=== PATIENT | female | born 1935 | race Caucasian/White ===

== ENCOUNTER 2017-08-25 13:01 | Inpatient (IN) | payer OTHER ==
[~2017-08-25] VITALS: Ht 172.7 cm; Wt 95.8 kg
[2017-08-25] MEDS ORDERED: cefTRIAXone 1GM/10ml IVPUSH 10 ML IV ONE (13:45)
[2017-08-25 14:00] LABS: Basophils # (auto) 0.1 uL; Basophils % (auto) 0.6 % (0.0-2.0); Eosinophils # (auto) 0.1 uL; Hematocrit 44.7 % (36.0-46.0); Hemoglobin 14.3 g/dL (12.2-16.2); Lymphocytes # (auto) 2.5 uL; Lymphocytes % (auto) 26.4 % (10.0-50.0); Mean Corpuscular Volume 90.7 fL (80.0-100.0); Monocytes # (auto) 0.7 uL; Monocytes % (auto) 6.9 % (0.0-12.0); Neutrophils # (auto) 6.2 uL; Neutrophils % (auto) 65.1 % (37.0-80.0); Nucleated Red Blood Cells % 0.1 %; Platelet Count (auto) 242 10^3/uL (140-450); Red Blood Cells 4.92 10^6/uL (4.0-5.20); Red Cell Distribution Width 16.7 % (11.8-14.3); White Blood Cell 9.5 10^3/uL (4.4-10.8)
[2017-08-25 14:20] LABS: Albumin 3.1 g/dL (3.4-5.0); BUN/Creatinine Ratio 13.8; Bilirubin, Total 0.4 mg/dL (0.2-1.0); Calcium 8.4 mg/dL (8.5-10.1); Magnesium 2.2 mg/dL (1.6-2.6); Potassium 3.2 mmol/L (3.5-5.1); Total Protein 7.1 g/dL (6.4-8.2)
[2017-08-25 14:49] LABS: Lactic Acid w/Reflex 2.6 mmol/L (0.4-2.0)
[2017-08-25] MEDS ORDERED: VANCOMYCIN 1GM/250ML 250 ML IV ONE (15:45)
[2017-08-25 16:11] LABS: Urine Amorphous Crystal FEW /hpf (None Seen); Urine Bacteria MANY /hpf (None Seen); Urine Blood TRACE /uL (Negative); Urine Mucus FEW (None Seen); Urine Specific Gravity 1.017 (1.001-1.035); Urine WBC 66 /hpf (0 - 5); Urine WBC Clumps PRESENT /hpf (None Seen)
[2017-08-25] MEDS ORDERED: ONDANSETRON HCL 4 MG/2 ML VIAL IV PRN (16:15)
[2017-08-25] MEDS ORDERED: NITROGLYCERIN 0.4 MG SL TAB SL PRN (16:15)
[2017-08-25] MEDS ORDERED: DEXTROSE (50%) 50ML SYRG IV PRN (16:15)
[2017-08-25] MEDS ORDERED: MORPHINE SULFATE 4 MG/ML SYR/VIAL IV PRN ×2 (16:15)
[2017-08-25] MEDS ORDERED: POTASSIUM CHLORIDE 20 MEQ, LIDOCAINE 1% (LOCAL ANESTH.) 2 ML in SODIUM CHL 0.9% 100 ML IV ONE (16:15)
[2017-08-25] MEDS ORDERED: VANCOMYCIN PER PHARMACY 0 MG IV SCH (16:15)
[2017-08-25] MEDS ORDERED: ASPirin 300 MG RECTAL SUPP PR ONE (16:45)
[2017-08-25] MEDS: SODIUM CHLORIDE 0.9% 1,000 ML IV SCH (16:54)
[2017-08-25] MEDS: ENOXAPARIN SOD 40 MG/0.4 ML SYRINGE SC SCH (16:54)
[2017-08-25] MEDS: InsuLIN REG 1unit/0.01ml Soln (100units/ml) SC SCH (18:00)
[2017-08-25] MEDS: ACCU-CHEK COMFORT CURVE STRIP VI SCH (18:06)
[2017-08-25 20:15] LABS: Lactic Acid w/Reflex 2.1 mmol/L (0.4-2.0)
[2017-08-25 21:06] VITALS: BP 104/81
[2017-08-25] MEDS ORDERED: FUROSEMIDE 20 MG/2 ML VIAL IV ONE (21:15)
[2017-08-25 22:28] VITALS: BP 99/49
[2017-08-26] VITALS (9 sets, daily range): BP systolic 90–134; BP diastolic 40–86
[2017-08-26] MEDS ORDERED: PIPERACILLIN-TAZOB 3.375GM 100 ML IV SCH
[2017-08-26] MEDS ORDERED: GLIP-115 PO (01:13)
[2017-08-26] MEDS ORDERED: METF-370 PO (01:13)
[2017-08-26] MEDS ORDERED: LOSA25TA9 PO (01:13)
[2017-08-26] MEDS ORDERED: CLOP75TA28 PO (01:13)
[2017-08-26] MEDS ORDERED: ATOR80TA PO (01:13)
[2017-08-26 05:37] LABS: Basophils # (auto) 0.1 uL; Basophils % (auto) 0.6 % (0.0-2.0); Eosinophils # (auto) 0.1 uL; Eosinophils % (auto) 0.7 % (0.0-7.0); Hematocrit 35.8 % (36.0-46.0); Hemoglobin 11.8 g/dL (12.2-16.2); Lymphocytes % (auto) 23.6 % (10.0-50.0); Mean Corpuscular Hemoglobin 29.7 pg (28.0-32.0); Mean Corpuscular Hgb Conc. 32.9 g/dL (32.0-36.0); Mean Corpuscular Volume 90.2 fL (80.0-100.0); Monocytes # (auto) 0.8 uL; Monocytes % (auto) 9.1 % (0.0-12.0); Neutrophils # (auto) 5.7 uL; Nucleated Red Blood Cells % 0.1 %; Platelet Count (auto) 200 10^3/uL (140-450); Red Blood Cells 3.97 10^6/uL (4.0-5.20); Red Cell Distribution Width 16.2 % (11.8-14.3); White Blood Cell 8.6 10^3/uL (4.4-10.8)
[2017-08-26] MEDS: InsuLIN REG 1unit/0.01ml Soln (100units/ml) SC SCH ×4 (06:00→17:59)
[2017-08-26] MEDS: ACCU-CHEK COMFORT CURVE STRIP VI SCH ×4 (06:00→17:59)
[2017-08-26 06:13] LABS: Albumin 2.7 g/dL (3.4-5.0); BUN/Creatinine Ratio 18.8; Calcium 8.3 mg/dL (8.5-10.1)
[2017-08-26 06:15] LABS: Bilirubin, Total 0.5 mg/dL (0.2-1.0); Total Protein 5.9 g/dL (6.4-8.2)
[2017-08-26] MEDS: SODIUM CHLORIDE 0.9% 1,000 ML IV SCH (08:54)
[2017-08-26] MEDS: PIPERACILLIN-TAZOB 3.375GM 100 ML IV SCH ×3 (09:00→20:32)
[2017-08-26] MEDS ORDERED: cefTRIAXone 1GM/10ml IVPUSH 10 ML IV SCH (09:00)
[2017-08-26] MEDS: ENOXAPARIN SOD 40 MG/0.4 ML SYRINGE SC SCH (10:01)
[2017-08-26] MEDS: VANCOMYCIN 1,250 MG in D5W 5% 250 ML IV SCH (10:02)
[2017-08-26] MEDS ORDERED: PANTOPRAZOLE 40 MG/10 ML VIAL IV ONE (13:45)
[2017-08-26] MEDS: CLOPIDOGREL BISULFATE 75 MG TAB PO SCH (14:58)
[2017-08-26] MEDS ORDERED: FAMOTIDINE 20 MG TAB PO ONE (15:00)
[2017-08-26] MEDS ORDERED: POTASSIUM CHL 20 Meq TABLET PO ONE ×2 (15:02→15:40)
[2017-08-26] MEDS: POTASSIUM CHL 20MEQ/100ML 100 ML IV SCH ×2 (15:04→15:49)
[2017-08-26] MEDS ORDERED: IOHEXOL 350 MG/ML 100ML IJ ONE (15:57)
[2017-08-27] VITALS: BP 108/66
[2017-08-27] MEDS: ACCU-CHEK COMFORT CURVE STRIP VI SCH ×5 (00:13→23:44)
[2017-08-27] MEDS: SODIUM CHLORIDE 0.9% 1,000 ML IV SCH ×2 (01:34→18:14)
[2017-08-27] MEDS: PIPERACILLIN-TAZOB 3.375GM 100 ML IV SCH ×2 (02:59→09:31)
[2017-08-27 04:00] VITALS: BP 116/70
[2017-08-27] MEDS: VANCOMYCIN 1,250 MG in D5W 5% 250 ML IV SCH ×2 (04:44→22:24)
[2017-08-27 05:58] LABS: Basophils # (auto) 0 uL; Basophils % (auto) 0.7 % (0.0-2.0); Eosinophils # (auto) 0.1 uL; Hematocrit 40.3 % (36.0-46.0); Hemoglobin 13.3 g/dL (12.2-16.2); Lymphocytes # (auto) 1.8 uL; Lymphocytes % (auto) 25.9 % (10.0-50.0); Mean Corpuscular Hemoglobin 29.8 pg (28.0-32.0); Mean Corpuscular Hgb Conc. 32.8 g/dL (32.0-36.0); Mean Corpuscular Volume 90.8 fL (80.0-100.0); Monocytes # (auto) 0.7 uL; Monocytes % (auto) 10.1 % (0.0-12.0); Neutrophils # (auto) 4.4 uL; Neutrophils % (auto) 62.3 % (37.0-80.0); Nucleated Red Blood Cells % 0.1 %; Platelet Count (auto) 201 10^3/uL (140-450); Red Blood Cells 4.44 10^6/uL (4.0-5.20); Red Cell Distribution Width 16.3 % (11.8-14.3); White Blood Cell 7.1 10^3/uL (4.4-10.8)
[2017-08-27] MEDS: InsuLIN REG 1unit/0.01ml Soln (100units/ml) SC SCH ×5 (06:15→23:45)
[2017-08-27 06:17] LABS: Potassium 3.3 mmol/L (3.5-5.1)
[2017-08-27 06:26] LABS: Albumin 2.9 g/dL (3.4-5.0); BUN/Creatinine Ratio 15.1; Calcium 8.5 mg/dL (8.5-10.1)
[2017-08-27 06:28] LABS: Bilirubin, Total 0.6 mg/dL (0.2-1.0); Total Protein 6.6 g/dL (6.4-8.2)
[2017-08-27 08:00] VITALS: BP 118/76
[2017-08-27] MEDS: ENOXAPARIN SOD 40 MG/0.4 ML SYRINGE SC SCH (10:00)
[2017-08-27] MEDS: FAMOTIDINE 20 MG TAB PO SCH (10:00)
[2017-08-27] MEDS: CLOPIDOGREL BISULFATE 75 MG TAB PO SCH (10:00)
[2017-08-27] MEDS ORDERED: PANTOPRAZOLE 40 MG/10 ML VIAL IV SCH (10:00)
[2017-08-27] MEDS ORDERED: IOHEXOL 350 MG/ML 100ML IJ ONE (11:01)
[2017-08-27] MEDS ORDERED: LIDOCAINE HCL 2 %PF INJ 10ML AMP IJ ONE (11:01)
[2017-08-27] MEDS ORDERED: AZITHROMYCIN 500MG/ 250ML 250 ML IV ONE (11:30)
[2017-08-27 11:50] VITALS: BP 114/62
[2017-08-27] MEDS ORDERED: fentaNYL CITRATE 100 MCG/2 ML VL ONE (13:53)
[2017-08-27] MEDS ORDERED: ANGIOMAX 250 MG VIAL IV ONE (13:53)
[2017-08-27] MEDS ORDERED: SODIUM CHL 0.9% 0 ML ONE (13:53)
[2017-08-27] MEDS ORDERED: MIDAZOLAM HCL 1MG/1ML-2 ML VIAL ONE (13:53)
[2017-08-27] MEDS ORDERED: NALOXONE HCL 0.4 MG/ML VIAL ONE (14:20)
[2017-08-27] MEDS ORDERED: FLUMAZENIL 0.1 MG/ML INJ 10ML MDV IV ONE (14:20)
[2017-08-27] MEDS ORDERED: DOBUTamine 1000MCG/ML 250 ML IV ONE (14:32)
[2017-08-27] MEDS: DOBUTamine 1000MCG/ML 250 ML IV SCH (14:45)
[2017-08-27 15:35] VITALS: BP 126/67
[2017-08-27] MEDS: AZITHROMYCIN 500MG/ 250ML 200 ML IV SCH (16:30)
[2017-08-27] MEDS: cefTRIAXone 1GM/10ml IVPUSH 10 ML IV SCH (17:54)
[2017-08-27 19:46] VITALS: BP 108/44
[2017-08-27] MEDS: ATORVASTATIN 20 MG TAB PO SCH (22:23)
[2017-08-28 05:11] LABS: Basophils # (auto) 0 uL; Basophils % (auto) 0.4 % (0.0-2.0); Eosinophils # (auto) 0.1 uL; Eosinophils % (auto) 1.4 % (0.0-7.0); Hematocrit 38.7 % (36.0-46.0); Hemoglobin 12.4 g/dL (12.2-16.2); Lymphocytes # (auto) 2.1 uL; Lymphocytes % (auto) 29.6 % (10.0-50.0); Mean Corpuscular Volume 90.7 fL (80.0-100.0); Monocytes # (auto) 0.7 uL; Monocytes % (auto) 10.4 % (0.0-12.0); Neutrophils # (auto) 4.1 uL; Neutrophils % (auto) 58.2 % (37.0-80.0); Nucleated Red Blood Cells % 0.1 %; Platelet Count (auto) 166 10^3/uL (140-450); Red Blood Cells 4.26 10^6/uL (4.0-5.20); Red Cell Distribution Width 15.8 % (11.8-14.3)
[2017-08-28 05:25] LABS: Albumin 2.8 g/dL (3.4-5.0); BUN/Creatinine Ratio 13.6; Calcium 8.4 mg/dL (8.5-10.1)
[2017-08-28 05:26] LABS: Bilirubin, Total 0.5 mg/dL (0.2-1.0); Total Protein 6.1 g/dL (6.4-8.2)
[2017-08-28] MEDS: InsuLIN REG 1unit/0.01ml Soln (100units/ml) SC SCH ×3 (06:00→19:30)
[2017-08-28] MEDS: ACCU-CHEK COMFORT CURVE STRIP VI SCH ×3 (06:00→19:30)
[2017-08-28 08:00] VITALS: BP 128/77
[2017-08-28] MEDS: DOBUTamine 1000MCG/ML 250 ML IV SCH ×2 (08:11→08:27)
[2017-08-28 08:20] LABS: INR 1.02 (0.9-1.15); Prothrombin Time 11.1 sec (9.37-12.3)
[2017-08-28] MEDS: ENOXAPARIN SOD 40 MG/0.4 ML SYRINGE SC SCH (09:23)
[2017-08-28] MEDS: CLOPIDOGREL BISULFATE 75 MG TAB PO SCH (09:24)
[2017-08-28] MEDS: FAMOTIDINE 20 MG TAB PO SCH (09:27)
[2017-08-28] MEDS: cefTRIAXone 1GM/10ml IVPUSH 10 ML IV SCH (09:28)
[2017-08-28] MEDS: AZITHROMYCIN 500MG/ 250ML 200 ML IV SCH (09:32)
[2017-08-28] MEDS ORDERED: POTASSIUM CHL 10% (20 MEQ/15ML) 15ml ORAL SOLN PO ONE (10:15)
[2017-08-28 11:52] VITALS: BP 121/62
[2017-08-28] MEDS ORDERED: ceFAZolin 1GM/50ML 50 ML IV ONE (14:42)
[2017-08-28] MEDS ORDERED: VANCOMYCIN HCL 1000 MG VL ONE ×2 (14:46→16:53)
[2017-08-28] MEDS ORDERED: fentaNYL CITRATE 100 MCG/2 ML VL ONE (16:53)
[2017-08-28] MEDS ORDERED: LIDOCAINE HCL 2 %PF INJ 10ML AMP IJ ONE ×2 (16:54→17:12)
[2017-08-28] MEDS ORDERED: BACITRACIN INJ 50000 UNIT VIAL ONE (16:54)
[2017-08-28] MEDS ORDERED: IOHEXOL 350 MG/ML 100ML IJ ONE (16:54)
[2017-08-28] MEDS ORDERED: VANCOMYCIN 1GM/250ML 0 ML IV ONE (16:54)
[2017-08-28] MEDS ORDERED: MIDAZOLAM HCL 1MG/1ML-2 ML VIAL ONE (16:54)
[2017-08-28] MEDS ORDERED: FUROSEMIDE 40 MG/4 ML VIAL ONE ×2 (18:08→18:36)
[2017-08-28] MEDS ORDERED: POTASSIUM CHL 20MEQ/100ML 100 ML IV ONE (19:00)
[2017-08-28] MEDS: VANCOMYCIN 1,250 MG in D5W 5% 250 ML IV SCH (19:30)
[2017-08-28] MEDS: SODIUM CHLORIDE 0.9% 1,000 ML IV SCH (19:30)
[2017-08-28 20:07] VITALS: BP 124/68
[2017-08-28] MEDS: ATORVASTATIN 20 MG TAB PO SCH (22:00)
[2017-08-28 23:37] VITALS: BP 106/62
[2017-08-29] VITALS (9 sets, daily range): BP systolic 85–139; BP diastolic 52–74
[2017-08-29] MEDS: ACCU-CHEK COMFORT CURVE STRIP VI SCH ×4 (00:06→18:15)
[2017-08-29] MEDS: DOBUTamine 1000MCG/ML 250 ML IV SCH (02:09)
[2017-08-29] MEDS: SODIUM CHLORIDE 0.9% 1,000 ML IV SCH (03:34)
[2017-08-29 06:03] LABS: Basophils # (auto) 0 uL; Basophils % (auto) 0.4 % (0.0-2.0); Eosinophils # (auto) 0.1 uL; Eosinophils % (auto) 1.4 % (0.0-7.0); Hematocrit 40.5 % (36.0-46.0); Hemoglobin 13.2 g/dL (12.2-16.2); Lymphocytes # (auto) 2.1 uL; Lymphocytes % (auto) 24.8 % (10.0-50.0); Mean Corpuscular Hemoglobin 29.5 pg (28.0-32.0); Mean Corpuscular Hgb Conc. 32.5 g/dL (32.0-36.0); Mean Corpuscular Volume 90.7 fL (80.0-100.0); Monocytes # (auto) 0.9 uL; Monocytes % (auto) 10.1 % (0.0-12.0); Neutrophils # (auto) 5.4 uL; Neutrophils % (auto) 63.3 % (37.0-80.0); Platelet Count (auto) 180 10^3/uL (140-450); Red Blood Cells 4.46 10^6/uL (4.0-5.20); Red Cell Distribution Width 15.7 % (11.8-14.3); White Blood Cell 8.6 10^3/uL (4.4-10.8)
[2017-08-29] MEDS: InsuLIN REG 1unit/0.01ml Soln (100units/ml) SC SCH ×4 (06:05→18:15)
[2017-08-29 06:39] LABS: Albumin 3.1 g/dL (3.4-5.0); BUN/Creatinine Ratio 10.6; Bilirubin, Total 0.8 mg/dL (0.2-1.0); Calcium 8.8 mg/dL (8.5-10.1); Potassium 3.1 mmol/L (3.5-5.1); Total Protein 6.7 g/dL (6.4-8.2)
[2017-08-29] MEDS ORDERED: SOD CHL 0.9%/ KCL 40MEQ 1,000 ML IV SCH (09:15)
[2017-08-29] MEDS: cefTRIAXone 1GM/10ml IVPUSH 10 ML IV SCH (09:43)
[2017-08-29] MEDS: CLOPIDOGREL BISULFATE 75 MG TAB PO SCH (09:43)
[2017-08-29] MEDS: FAMOTIDINE 20 MG TAB PO SCH (09:43)
[2017-08-29] MEDS: AZITHROMYCIN 500MG/ 250ML 200 ML IV SCH (09:43)
[2017-08-29] MEDS: VANCOMYCIN 1,250 MG in D5W 5% 250 ML IV SCH (09:43)
[2017-08-29] MEDS: ENOXAPARIN SOD 40 MG/0.4 ML SYRINGE SC SCH (09:44)
== END 2017-08-29 21:09 | disposition home health service (06) | DRG 853 ==
LOC: ER 13:15 → TELE 13:16 → DOU IN ICU 22:58
PROVIDERS: ADMIT Internal Medicine; ATTEND Family Medicine
PROC: 5A09357 Assistance with Respiratory Ventilation, Less than 24 Consecutive Hours, Continuous Positive Airway Pressure (ICD-10-PCS; 2017-08-25)
PROC: 5A09357 Assistance with Respiratory Ventilation, Less than 24 Consecutive Hours, Continuous Positive Airway Pressure (ICD-10-PCS; 2017-08-26)
PROC: 4A023N7 Measurement of Cardiac Sampling and Pressure, Left Heart, Percutaneous Approach (ICD-10-PCS; 2017-08-27)
PROC: B2111ZZ Fluoroscopy of Multiple Coronary Arteries using Low Osmolar Contrast (ICD-10-PCS; 2017-08-27)
PROC: B2151ZZ Fluoroscopy of Left Heart using Low Osmolar Contrast (ICD-10-PCS; 2017-08-27)
PROC: 5A09357 Assistance with Respiratory Ventilation, Less than 24 Consecutive Hours, Continuous Positive Airway Pressure (ICD-10-PCS; 2017-08-27)
PROC: 0JH609Z Insertion of Cardiac Resynchronization Defibrillator Pulse Generator into Chest Subcutaneous Tissue and Fascia, Open Approach (ICD-10-PCS; principal; 2017-08-28)
PROC: 02HL3KZ Insertion of Defibrillator Lead into Left Ventricle, Percutaneous Approach (ICD-10-PCS; 2017-08-28)
PROC: 02H63KZ Insertion of Defibrillator Lead into Right Atrium, Percutaneous Approach (ICD-10-PCS; 2017-08-28)
PROC: 02HK3KZ Insertion of Defibrillator Lead into Right Ventricle, Percutaneous Approach (ICD-10-PCS; 2017-08-28)
PROC: 5A09357 Assistance with Respiratory Ventilation, Less than 24 Consecutive Hours, Continuous Positive Airway Pressure (ICD-10-PCS; 2017-08-28)
PROC: 5A09357 Assistance with Respiratory Ventilation, Less than 24 Consecutive Hours, Continuous Positive Airway Pressure (ICD-10-PCS; 2017-08-29)
DX: A41.9 Sepsis, unspecified organism (principal); J96.21 Acute and chronic respiratory failure with hypoxia; I50.43 Acute on chronic combined systolic (congestive) and diastolic (congestive) heart failure; L89.309 Pressure ulcer of unspecified buttock, unspecified stage; E44.0 Moderate protein-calorie malnutrition; G92 Toxic encephalopathy; J18.1 Lobar pneumonia, unspecified organism; L89.150 Pressure ulcer of sacral region, unstageable; L89.319 Pressure ulcer of right buttock, unspecified stage; I42.0 Dilated cardiomyopathy; E83.51 Hypocalcemia; J96.22 Acute and chronic respiratory failure with hypercapnia; N39.0 Urinary tract infection, site not specified; E87.0 Hyperosmolality and hypernatremia; I13.0 Hypertensive heart and chronic kidney disease with heart failure and stage 1 through stage 4 chronic kidney disease, or unspecified chronic kidney disease; I69.351 Hemiplegia and hemiparesis following cerebral infarction affecting right dominant side; J44.0 Chronic obstructive pulmonary disease with (acute) lower respiratory infection; J44.1 Chronic obstructive pulmonary disease with (acute) exacerbation; B95.62 Methicillin resistant Staphylococcus aureus infection as the cause of diseases classified elsewhere; B96.20 Unspecified Escherichia coli [E. coli] as the cause of diseases classified elsewhere; E11.21 Type 2 diabetes mellitus with diabetic nephropathy; E11.22 Type 2 diabetes mellitus with diabetic chronic kidney disease; E87.6 Hypokalemia; I34.0 Nonrheumatic mitral (valve) insufficiency; I65.22 Occlusion and stenosis of left carotid artery; T68.XXXA Hypothermia, initial encounter; H53.461 Homonymous bilateral field defects, right side; I45.9 Conduction disorder, unspecified; I35.0 Nonrheumatic aortic (valve) stenosis; R74.8 Abnormal levels of other serum enzymes; N18.2 Chronic kidney disease, stage 2 (mild); Z79.899 Other long term (current) drug therapy; Z79.02 Long term (current) use of antithrombotics/antiplatelets; Z82.49 Family history of ischemic heart disease and other diseases of the circulatory system; Z83.3 Family history of diabetes mellitus; Z90.710 Acquired absence of both cervix and uterus; Z68.32 Body mass index [BMI] 32.0-32.9, adult; Z74.01 Bed confinement status; Z88.2 Allergy status to sulfonamides
CPT/HCPCS: 31720; 36415; 36600; 51702; 70450; 70498; 71045; 76604; 80053; 80202; 81001; 82805; 82962; 83036; 83605; 83735; 83880; 84443; 84484; 85025; 85610; 87040; 87081; 87086; 93005; 93306; 93886; 94660; 95819; 96365; 96375; 99152; 99291; C9113; J0690; J1815; J2001; J2250; J2543; J3480; J7060

== ENCOUNTER 2022-03-18 23:22 | Inpatient (IN) | payer OTHER ==
[~2022-03-18] VITALS: Ht 175.3 cm; Wt 95.0 kg
[~2022-03-18 23:22] MED LIST: ATOR80TA PO; CLOP75TA28 PO; GLIP5TAB12 PO; LOSA25TA38 PO; METF-370 PO
[2022-03-19 00:42] LABS: Eosinophils # (auto) 0 10 ^3/uL (0-0.8); Lymphocytes # (auto) 1.5 10 ^3/uL (0.4-5.4); Nucleated Red Blood Cells % 0.1 %
[2022-03-19 00:43] LABS: Basophils # (auto) 0.2 10 ^3/uL (0-0.2); Eosinophils % (auto) 0.2 % (0.0-7.0); Hematocrit 31.2 % (36.0-46.0); Hemoglobin 9.2 g/dL (12.2-16.2); Lymphocytes % (auto) 9.2 % (10.0-50.0); Mean Corpuscular Hemoglobin 20.1 pg (28.0-32.0); Mean Corpuscular Hgb Conc. 29.5 g/dL (32.0-36.0); Mean Corpuscular Volume 68.4 fL (80.0-100.0); Monocytes % (auto) 6.3 % (0.0-12.0); Neutrophils # (auto) 13.5 10 ^3/uL (1.6-8.6); Neutrophils % (auto) 83.3 % (37.0-80.0); Red Blood Cells 4.57 10^6/uL (4.0-5.20); White Blood Cell 16.2 10^3/uL (4.4-10.8)
[2022-03-19 00:48] LABS: Red Cell Distribution Width 20.5 % (11.8-14.3)
[2022-03-19 01:01] LABS: Albumin 3.8 g/dL (3.4-5.0); BUN/Creatinine Ratio 24.3; Calcium 8.7 mg/dL (8.5-10.1); Potassium 5.3 mmol/L (3.5-5.1)
[2022-03-19 01:04] LABS: Bilirubin, Total 0.5 mg/dL (0.2-1.0); Total Protein 7.6 g/dL (6.4-8.2)
[2022-03-19] MEDS ORDERED: ALBUTEROL SULF 2.5 MG/0.5ML(0.5%) NEB SOLN NEB ONE (01:30)
[2022-03-19] MEDS ORDERED: IPRATROPIUM BROM 0.5 MG/2.5ML INH SOL NEB ONE (01:30)
[2022-03-19] MEDS ORDERED: AZITHROMYCIN 500MG/ 250ML 250 ML IV ONE (01:30)
[2022-03-19] MEDS ORDERED: methylPREDNISolone SOD SUCC 125 MG/2 ML VL IV ONE (01:30)
[2022-03-19] MEDS ORDERED: cefTRIAXone SOD 1,000 MG VL IV ONE (01:30)
[2022-03-19] MEDS ORDERED: FUROSEMIDE 100 MG/10ML VIAL IV ONE (01:45)
[2022-03-19 02:00] VITALS: BP 110/59
[2022-03-19 03:08] LABS: Lactic Acid w/Reflex 2.9 mmol/L (0.4-2.0)
[2022-03-19 04:04] VITALS: BP 110/59
[2022-03-19 07:00] VITALS: BP 94/39
[2022-03-19] MEDS ORDERED: SODIUM CHLORIDE 0.9% 1,000 ML IV ONE (08:30)
[2022-03-19 08:52] LABS: Urine Bacteria NONE SEEN /hpf (None Seen); Urine Blood Negative /uL (Negative); Urine Hyaline Cast MANY /lpf (0 - 2); Urine Mucus FEW (None Seen); Urine Specific Gravity 1.013 (1.001-1.035); Urine WBC 30 /hpf (0 - 5)
[2022-03-19 09:27] LABS: Eosinophils # (auto) 0 10 ^3/uL (0-0.8); Lymphocytes # (auto) 0.5 10 ^3/uL (0.4-5.4); Monocytes # (auto) 0.1 10 ^3/uL (0-1.3); Monocytes % (auto) 1.1 % (0.0-12.0)
[2022-03-19 09:30] LABS: Basophils # (auto) 0 10 ^3/uL (0-0.2); Basophils % (auto) 0.3 % (0.0-2.0); Hematocrit 27.6 % (36.0-46.0); Hemoglobin 8.2 g/dL (12.2-16.2); Lymphocytes % (auto) 6.2 % (10.0-50.0); Mean Corpuscular Hemoglobin 20.7 pg (28.0-32.0); Mean Corpuscular Hgb Conc. 29.8 g/dL (32.0-36.0); Mean Corpuscular Volume 69.6 fL (80.0-100.0); Neutrophils # (auto) 7.7 10 ^3/uL (1.6-8.6); Neutrophils % (auto) 92.4 % (37.0-80.0); Nucleated Red Blood Cells % 0.1 %; Red Blood Cells 3.96 10^6/uL (4.0-5.20); White Blood Cell 8.3 10^3/uL (4.4-10.8)
[2022-03-19 09:39] LABS: Red Cell Distribution Width 20.1 % (11.8-14.3)
[2022-03-19] MEDS ORDERED: ALBUTEROL SULF 2.5 MG/0.5ML(0.5%) NEB SOLN NEB SCH ×2 (09:45)
[2022-03-19] MEDS ORDERED: HYDROcodone-ACET 5/325MG TAB PO PRN (09:45)
[2022-03-19] MEDS ORDERED: ONDANSETRON HCL 4 MG/2 ML VIAL IV PRN (09:45)
[2022-03-19] MEDS ORDERED: HYDROmorphone HCL 2 MG/ML VL/or syr IV PRN (09:45)
[2022-03-19] MEDS ORDERED: ACETAMINOPHEN 325 MG TAB PO PRN (09:45)
[2022-03-19] MEDS ORDERED: DOCUSATE SOD 100 MG CAP PO PRN (09:45)
[2022-03-19 09:46] LABS: Albumin 3.3 g/dL (3.4-5.0); Calcium 8.2 mg/dL (8.5-10.1)
[2022-03-19 09:50] LABS: BUN/Creatinine Ratio 27.3; Bilirubin, Total 0.4 mg/dL (0.2-1.0)
[2022-03-19] MEDS: FAMOTIDINE 20 MG TAB PO SCH (09:56)
[2022-03-19] MEDS: ATORVASTATIN 20 MG TAB PO SCH (09:56)
[2022-03-19] MEDS: CLOPIDOGREL BISULFATE 75 MG TAB PO SCH (09:56)
[2022-03-19] MEDS: HEPARIN SODIUM (PORCINE) 5000 UNITS/ML 1ML VIAL SC SCH ×2 (09:57→17:37)
[2022-03-19] MEDS ORDERED: LOSARTAN POTASSIUM 25 MG TAB PO SCH (10:00)
[2022-03-19] MEDS: ALBUTEROL SULF 2.5 MG/0.5ML(0.5%) NEB SOLN NEB SCH ×2 (11:29→19:30)
[2022-03-19] MEDS ORDERED: DEXTROSE (50%) 50ML SYRG IV PRN ×2 (11:45→23:15)
[2022-03-19] MEDS ORDERED: InsuLIN REG 1unit/0.01ml Soln (100units/ml) IV ONE (11:45)
[2022-03-19 11:47] LABS: Lactic Acid w/Reflex 4.5 mmol/L (0.4-2.0)
[2022-03-19] MEDS: methylPREDNISolone SOD SUCC 125 MG/2 ML VL IV SCH ×2 (12:07→18:51)
[2022-03-19] MEDS: SODIUM CHLOR 0.9% PF (SALINE LOCK) 10ML VIAL/SYR IV SCH ×2 (14:01→22:49)
[2022-03-19] MEDS ORDERED: InsuLIN REG 1unit/0.01ml Soln (100units/ml) SC SCH ×2 (17:00→22:00)
[2022-03-19] MEDS: ACCU-CHEK COMFORT CURVE STRIP VI SCH ×2 (17:17→22:26)
[2022-03-19 22:25] VITALS: BP 118/46
[2022-03-20] VITALS (9 sets, daily range): BP systolic 96–132; BP diastolic 49–75
[2022-03-20] MEDS: ACCU-CHEK COMFORT CURVE STRIP VI SCH ×6 (01:35→20:30)
[2022-03-20] MEDS: InsuLIN REG 1unit/0.01ml Soln (100units/ml) SC SCH ×6 (01:41→20:43)
[2022-03-20] MEDS: methylPREDNISolone SOD SUCC 125 MG/2 ML VL IV SCH ×3 (01:42→12:02)
[2022-03-20] MEDS: HEPARIN SODIUM (PORCINE) 5000 UNITS/ML 1ML VIAL SC SCH ×3 (02:58→18:17)
[2022-03-20] MEDS ORDERED: DEXTROSE (50%) 50ML SYRG IV PRN (05:45)
[2022-03-20] MEDS: SODIUM CHLOR 0.9% PF (SALINE LOCK) 10ML VIAL/SYR IV SCH ×3 (06:21→22:06)
[2022-03-20] MEDS: ALBUTEROL SULF 2.5 MG/0.5ML(0.5%) NEB SOLN NEB SCH ×4 (06:40→18:13)
[2022-03-20] MEDS: cefTRIAXone 1GM/50ML D5W 50 ML IV SCH (09:17)
[2022-03-20] MEDS: CLOPIDOGREL BISULFATE 75 MG TAB PO SCH (09:18)
[2022-03-20] MEDS: FAMOTIDINE 20 MG TAB PO SCH (09:18)
[2022-03-20] MEDS: ATORVASTATIN 20 MG TAB PO SCH (09:18)
[2022-03-20] MEDS: AZITHROMYCIN 500MG/ 250ML 250 ML IV SCH (09:19)
[2022-03-20] MEDS ORDERED: INSULIN LANTUS (GLARGINE) 1 /0.01ml (100units/ml) SC ONE (12:45)
[2022-03-20] MEDS: FUROSEMIDE 40 MG/4 ML VIAL IV SCH ×2 (14:49→18:16)
[2022-03-20 15:51] LABS: BUN/Creatinine Ratio 35.3; Calcium 8.9 mg/dL (8.5-10.1); Potassium 5.2 mmol/L (3.5-5.1)
[2022-03-20] MEDS: BUDESONIDE (INHALATION) 0.5 MG/2 ML NEB NEB SCH (18:13)
[2022-03-20] MEDS ORDERED: methylPREDNISolone SOD SUCC 125 MG/2 ML VL IV SCH (22:00)
[2022-03-20] MEDS: CARVEDILOL 3.125 MG TAB PO SCH ×3 (22:00→23:45)
[2022-03-21] VITALS (7 sets, daily range): BP systolic 103–113; BP diastolic 59–73
[2022-03-21] MEDS: ACCU-CHEK COMFORT CURVE STRIP VI SCH ×5 (00:08→17:05)
[2022-03-21] MEDS: InsuLIN REG 1unit/0.01ml Soln (100units/ml) SC SCH ×5 (00:08→17:05)
[2022-03-21] MEDS: ALBUTEROL SULF 2.5 MG/0.5ML(0.5%) NEB SOLN NEB SCH ×4 (00:16→17:52)
[2022-03-21] MEDS: HEPARIN SODIUM (PORCINE) 5000 UNITS/ML 1ML VIAL SC SCH ×3 (01:16→17:49)
[2022-03-21] MEDS: SODIUM CHLOR 0.9% PF (SALINE LOCK) 10ML VIAL/SYR IV SCH ×3 (06:02→22:34)
[2022-03-21] MEDS: FUROSEMIDE 40 MG/4 ML VIAL IV SCH ×3 (06:02→17:48)
[2022-03-21] MEDS: BUDESONIDE (INHALATION) 0.5 MG/2 ML NEB NEB SCH ×2 (06:12→17:52)
[2022-03-21 06:17] LABS: Basophils # (auto) 0 10 ^3/uL (0-0.2); Basophils % (auto) 0.2 % (0.0-2.0); Eosinophils # (auto) 0 10 ^3/uL (0-0.8); Hematocrit 26.3 % (36.0-46.0); Hemoglobin 7.9 g/dL (12.2-16.2); Lymphocytes # (auto) 0.7 10 ^3/uL (0.4-5.4); Lymphocytes % (auto) 4.1 % (10.0-50.0); Mean Corpuscular Hemoglobin 20.3 pg (28.0-32.0); Mean Corpuscular Volume 67.8 fL (80.0-100.0); Monocytes # (auto) 0.7 10 ^3/uL (0-1.3); Monocytes % (auto) 3.9 % (0.0-12.0); Neutrophils # (auto) 16.4 10 ^3/uL (1.6-8.6); Neutrophils % (auto) 91.8 % (37.0-80.0); Nucleated Red Blood Cells % 0.5 %; Red Blood Cells 3.88 10^6/uL (4.0-5.20); Red Cell Distribution Width 19.9 % (11.8-14.3); White Blood Cell 17.9 10^3/uL (4.4-10.8)
[2022-03-21 06:31] LABS: Albumin 3.5 g/dL (3.4-5.0); Calcium 9.1 mg/dL (8.5-10.1); Potassium 4.6 mmol/L (3.5-5.1)
[2022-03-21 06:36] LABS: BUN/Creatinine Ratio 47.8; Bilirubin, Total 0.6 mg/dL (0.2-1.0); Total Protein 7.4 g/dL (6.4-8.2)
[2022-03-21] MEDS ORDERED: DEXTROSE (50%) 50ML SYRG IV PRN (09:30)
[2022-03-21] MEDS: ATORVASTATIN 20 MG TAB PO SCH (09:49)
[2022-03-21] MEDS: AZITHROMYCIN 500MG/ 250ML 250 ML IV SCH (09:49)
[2022-03-21] MEDS: CLOPIDOGREL BISULFATE 75 MG TAB PO SCH (09:49)
[2022-03-21] MEDS: FAMOTIDINE 20 MG TAB PO SCH (09:49)
[2022-03-21] MEDS: cefTRIAXone 1GM/50ML D5W 50 ML IV SCH (09:49)
[2022-03-21] MEDS: CARVEDILOL 3.125 MG TAB PO SCH ×2 (09:50→22:38)
[2022-03-22] MEDS: ALBUTEROL SULF 2.5 MG/0.5ML(0.5%) NEB SOLN NEB SCH (00:19)
[2022-03-22 00:21] VITALS: BP 92/56
[2022-03-22 01:00] VITALS: BP 92/56
[2022-03-22] MEDS: ACCU-CHEK COMFORT CURVE STRIP VI SCH (01:14)
[2022-03-22] MEDS: InsuLIN REG 1unit/0.01ml Soln (100units/ml) SC SCH (01:18)
[2022-03-22 02:08] VITALS: BP 98/68
[2022-03-22] MEDS: HEPARIN SODIUM (PORCINE) 5000 UNITS/ML 1ML VIAL SC SCH (02:23)
[2022-03-22 02:27] VITALS: BP 96/66
[2022-03-22] MEDS ORDERED: INSULIN LANTUS (GLARGINE) 1 /0.01ml (100units/ml) SC SCH (10:00)
== END 2022-03-22 02:45 | disposition short-term general hospital (02) | DRG 871 ==
LOC: EDBD 23:22 → ER 23:29 → TELE 03-19 09:31
PROVIDERS: ADMIT Internal Medicine; ATTEND Nurse Practitioner Acute Care
PROC: 5A09357 Assistance with Respiratory Ventilation, Less than 24 Consecutive Hours, Continuous Positive Airway Pressure (ICD-10-PCS; principal; 2022-03-19)
PROC: 5A09357 Assistance with Respiratory Ventilation, Less than 24 Consecutive Hours, Continuous Positive Airway Pressure (ICD-10-PCS; 2022-03-20)
PROC: 5A09357 Assistance with Respiratory Ventilation, Less than 24 Consecutive Hours, Continuous Positive Airway Pressure (ICD-10-PCS; 2022-03-21)
PROC: 5A09357 Assistance with Respiratory Ventilation, Less than 24 Consecutive Hours, Continuous Positive Airway Pressure (ICD-10-PCS; 2022-03-22)
DX: A41.9 Sepsis, unspecified organism (principal); G93.41 Metabolic encephalopathy; I50.23 Acute on chronic systolic (congestive) heart failure; J15.9 Unspecified bacterial pneumonia; J96.21 Acute and chronic respiratory failure with hypoxia; J96.22 Acute and chronic respiratory failure with hypercapnia; I69.351 Hemiplegia and hemiparesis following cerebral infarction affecting right dominant side; J44.0 Chronic obstructive pulmonary disease with (acute) lower respiratory infection; J44.1 Chronic obstructive pulmonary disease with (acute) exacerbation; R82.81 Pyuria; R65.20 Severe sepsis without septic shock; E66.9 Obesity, unspecified; E78.5 Hyperlipidemia, unspecified; I11.0 Hypertensive heart disease with heart failure; E11.65 Type 2 diabetes mellitus with hyperglycemia; Z20.822 Contact with and (suspected) exposure to COVID-19; I25.10 Atherosclerotic heart disease of native coronary artery without angina pectoris; Z83.3 Family history of diabetes mellitus; Z82.49 Family history of ischemic heart disease and other diseases of the circulatory system; Z79.899 Other long term (current) drug therapy; Z79.84 Long term (current) use of oral hypoglycemic drugs; Z68.30 Body mass index [BMI] 30.0-30.9, adult; Z88.2 Allergy status to sulfonamides
CPT/HCPCS: 36415; 36600; 71045; 80048; 80053; 81001; 82805; 82962; 83036; 83605; 83880; 84443; 84484; 85025; 87040; 87086; 87426; 87804; 93005; 93306; 94640; 94660; 96361; 96372; 96374; 99291; G0378; J0696; J1815